=== PATIENT | male | born 1945 | race Caucasian/White ===

== ENCOUNTER → 2017-02-28 | Outpatient (CLI) | payer MEDICARE ==
[~2017-02-28] MED LIST: ALBUTEROL2.5 MG/NEB INH; ASPIRIN 81MG TA81 MG PO; ATORVASTATIN CA80 MG PO; AVANDIA PO; AVANDIA8 MG PO; ENDOCET 650 MG-1 TAB PO; FLOMAX 0.4MG C0.4 MG PO; GABAPENTIN800 MG PO; HUMALOG100 U/ML SC; HUMULIN N100 U/ML SC; HUMULIN N100 UNITS/ SC; HUMULIN R100 U/ML SC; HUMULIN R100 UNITS/ SC; HYDROXYZINE 25M25 MG PO; LANTUS INS100 UNITS/ SC; LISINOPRIL40 MG PO; LORTAB 5/500 501 TAB PO; MECLIZINE HYDRO25 MG PO; METOCLOPRAMIDE H5 MG PO; METOPROLOL SUC100 M1 PO; NEURONTIN 300M300 MG PO; PERCOCET 650 MG1 TAB PO; PERCOCET1 TA1 PO; PHENERGAN25 M3 PO; PLAVIX 75MG TAB75 MG PO; PLAVIX75 MG PO; RANITIDINE HCL300 M1 PO; REQUIP 1 MG TABL1 MG PO; ROPINIROLE HYDRO1 M1 PO; ROPINIROLE HYDRO1 MG PO; ROPINIROLE HYDRO3 MG PO; TAMSULOSIN HCL0.4 MG PO; TORSEMIDE PO; TROLAMINE SALICYLATE TP; VALIUM 2MG TABLE2 MG PO; ZOFRAN4 MG PO; Zofran4 MG PO
[2017-02-28 14:00] LABS: LYMPH # 2.3 K/mm3 (0.7-4.5)
[2017-02-28 14:09] LABS: HEMOGLOBIN 12.5 g/dL (14.1-18.0)
[2017-02-28 14:49] LABS: BUN 23 mg/dL (7-18)
[2017-02-28 14:50] LABS: GFR (ESTIMATED) 66 ML/MIN (>60)
== END ==
LOC: CARL-LAB 11:36
PROVIDERS: Internal Medicine Adolescent Medicine
DX: I10 Essential (primary) hypertension (principal); E11.42 Type 2 diabetes mellitus with diabetic polyneuropathy